=== PATIENT | male | born 2000 | race Caucasian/White ===

== ENCOUNTER 2024-09-30 15:15 | Emergency (ER) | payer OTHER, SELFPAY ==
--- NOTE | ~2024-09-30 | US_ITS ---
TESTICULAR ULTRASOUND (Doppler ultrasound interrogation techniques used as needed for this exam.) Ordering provider: Helene Landa MD History: . lump like feeling between between testicle . Comparison: None. FINDINGS: TESTICLES: Normal in size. The right measures 5x 2.5x 3.1 cm and the left measures 4.8x 2.7x 3.3 cm. Normal echogenicity bilaterally without mass lesion. Normal Doppler flow bilaterally. EPIDIDYMIDES: Normal in size. The right measures 1.3 cm and the left 1.3 cm. Normal echogenicity bila terally. Both demonstrate normal Doppler flow. Cystic areas seen in the right epididymis measuring 1. 3 x 0.3 x 0.3 cm. HYDROCELE: None. VARICOCELE: Mild right. OTHER ABNORMALITY: None seen. IMPRESSION: Right epididymal cyst. Mild right varicocele. Otherwise, normal testicular ultrasound. Reviewed, dictated and finalized at location A. IMPRESSION: Right epididymal cyst. Mild right varicocele. Otherwise, normal testicular ultr asound.
--- NOTE | 2024-09-30 15:35 | ED_ITS ---
HPI - General Adult General Chief complaint: Urogenital-Male Stated complaint: scrotal/penile discomfort, new partner recently Time Seen by Provider: 09/30/24 15:35 Source: patient Mode of arrival: ambulatory Limitations: no limitations Medical Decision Making Lab Data Labs: Lab Results 09/30/24 Range/Units 15:58 Urine Color Yellow (Yellow) Urine Appearance Clear (Clear) Urine pH 7.5 (5.0-9.0) Ur Specific [place] 1.022 (1.001-1.035) Urine Protein Negative (Negative) mg/dL Urine Glucose (UA) Negative (Negative) mg/dL Urine Ketones Negative (Negative) mg/dL Ur Blood (Man) Negative (Negative) Urine Nitrate Negative (Negative) Urine Bilirubin Negative (Negative) Urine Urobilinogen 1.0 (<2.0) mg/dL Leukocyte Esterase Rfl 1+ H (Negative) PILY/UL Urine RBC 0-2 (0-2) /hpf Urine WBC 21-50 H (0-3) /hpf Ur Squamous Epith Cells None seen (Few) /hpf Urine Bacteria None seen /hpf Urine Casts 0-2 Imaging Data Radiologist's impression: Impressions Scrotum Ultrasound 09/30/24 16:38 IMPRESSION: Right epididymal cyst. Mild right varicocele. Otherwise, normal testicular ultrasound. Critical Care Time Critical Care Time Critical Care Time: No Discharge Plan Discharge Clinical Impression: Epididymal cyst, Urinary tract infection, Varicocele Patient Disposition: Home Condition: Stable Instructions: Antibiotic Form, Urinary Tract Infection in Men (DC), Scrotal Pain (ED) Additional Instructions: Return if symptoms are worsening , call your family physician for appointment, take Tylenol as as needed for aches and pain, continue home medications. Patient Language: Nigerian Prescriptions: New levofloxacin 500 mg tablet 500 mg PO DAILY Qty: 5 0RF Follow-up/Referrals: Wild Bean MD [Physician] - 10/04/24 PHYSICIAN NOT ON STAFF,NONSTAFF [Primary Care Provider] -
[2024-09-30 15:40] VITALS: BP 127/71; PULSE 88; RESP 16; TEMP 36.6; O2SAT 99
[2024-09-30 16:10] LABS: Add Urine Microscopic? YES; Appearance Urine Clear (Clear); Bacteria Urine None Seen /hpf; Bilirubin Urine Negative (Negative); Blood Urine Negative (Negative); Color Urine Yellow (Yellow); Glucose Urine UA Negative (Negative); Ketones Urine Negative (Negative); Leukocyte Esterase Ur 1+ LEU/UL (Negative); Nitrate Urine Negative (Negative); Non Pathogenic Casts 0-2; Protein Urine Negative (Negative); RBC Urine 0-2 /hpf (0-2); Specific Grav Ur 1.022 (1.001-1.035); Squamous Epithelial Cell Urine None Seen /hpf (Few); WBC Urine 21-50 /hpf (0-3); pH Urine 7.5 (5.0-9.0)
--- OUTSIDE RECORDS SUMMARY | 2024-09-30 18:02 | XMS_ITS | Clinical Summary ---
Author Organization [facility] [address] [address] Care Team Providers Care Newsstand Vendor Name Role Phone Unknown, Notinfile Primary Care Provider Unavail able Allergies No known active allergies Medications No known medications Active Problems No known active problems Encounters Date Type Department Care Team Description 09/30/2024 2:45 PM CDT Office Visit [facility] at [address] [address] Linda Fields NP Scrotal pain (Primary Dx) from Last 3 Months Social History Tobacco Use Types Packs/Day Years Used Date Smoking Tobacco: Never Assessed Sex and Gender Information Value Date Recorded Sex Assigned at Not on file Legal Sex Male 9:32 AM CDT Gender Identity Not on file Sexual Orientation Not on file Obstetrics History Last Filed Vital Signs Vital Sign Reading Time Taken Comments Blood Pressure 126/80 09/30/2024 2:40 PM CDT Pulse 84 09/30/2024 2:40 PM CDT Temperature 36.8 C (98.2 F) 09/30/2024 2:40 PM CDT Respiratory Rate 20 09/30/2024 2:40 PM CDT Oxygen Saturation 100% 09/30/2024 2:40 PM CDT Inhaled Oxygen Concentration - - Weight 85.6 kg (188 lb 12.8 oz) 09/30/2024 2:40 PM CDT Height 182.9 cm (6') 03/13/2024 1:52 PM CDT Body Mass Index 25.61 03/13/2024 1:52 PM CDT Plan of Treatment Health Maintenance Due Date Last Done Comments Depression Screening 2002 Hepatitis C Screening 2002 DTaP/Tdap/Td Vaccine (1 - Tdap) 2013 Varicella Vaccines (1 of 2 - 13+ 2-dose series) 2015 HPV Vaccines (1 - Male 3-dos e series) 2017 Meningococcal B Vaccine (1 o f 2 - Standard) 2018 Hepatitis B Screening 02/28/2020 Regular Well Visit/Exam 18-64 02/28/2020 Influenza Vaccine (Season Ended) 2025 Pneumococcal vaccine <65 Aged Out No longer eligible based on patient's age to complete this topic Insurance * Guarantor: Michel Casas Account Type Relation to Patient Date of Phone Billing Address Personal/Family Self [address] [place] [address] [facility] [employer] Care Teams Newsstand Vendor Relationship Specialty Start Date End Date Unknown, Notinfile PCP - General 03/13/24
--- OUTSIDE RECORDS SUMMARY | 2024-09-30 18:02 | XMS_ITS | Referral Summary ---
Author Organization [facility] [address] [address] Care Team Providers Care Architect Intern Name Role Phone Unknown, Notinfile Primary Care Provider Unavail able Encounters Date Type Department Care Team Description 09/30/2024 2:45 PM CDT Office Visit [facility] at [address] [address] Linda Fields NP Scrotal pain (Primary Dx) from Last 3 Months Allergies No known active allergies Medications No known medications Active Problems No known active problems Social History Tobacco Use Types Packs/Day Years Used Date Smoking Tobacco: Never Assessed Sex and Gender Information Value Date Recorded Sex Assigned at Not on file Legal Sex Male 9:32 AM CDT Gender Identity Not on file Sexual Orientation Not on file Last Filed Vital Signs Vital Sign Reading [...] 03/13/2024 1:52 PM CDT Plan of Treatment Not on file Insurance * Guarantor: Michel Casas Account Type Relation to Patient Date of Phone Billing Address Personal/Family Self 2000 [address] [place] [address] [facility] [employer] Care Teams Architect Intern Relationship Specialty Start Date End Date Unknown, Notinfile PCP - General 03/13/24
--- OUTSIDE RECORDS SUMMARY | 2024-09-30 18:02 | XMS_ITS | Encounter Summary ---
Author Organization [facility] Healthcare Address [address] [place] [address] Care Team Providers Care Cigar Head Pegger Name Role Phone Unknown, Notinfile Primary Care Provider Unavail able Reason for Visit * Reason Comments Testicle Pain Not painful when uri nating. Not painful to touch. Not open. Not leaking. Encounter Details Date Type Department Care Team (Late st Contact Info) Description 09/30/2024 2:45 PM CDT Office Visit [facility] at [address] [address] Linda Fields, TRANSMISSION SPECIALIST [address] [place] [id number] Scrotal pain (Primary Dx) Social History Tobacco Use Types Packs/Day Years Used Date Smoking Tobacco: Never Assessed Sex and Gender Information Value Date Recorded Sex Assigned at Not on file Legal Sex Male 9:32 AM CDT Gender Identity Not on file Sexual Orientation Not on file documented as of this encounter Last Filed Vital Signs Vital Sign Reading Time Taken Comments Blood Pressure 126/80 09/30/2024 2:40 PM CDT Pulse 84 09/30/2024 2:40 PM CDT Temperature 36.8 C (98.2 F) 09/30/2024 2:40 PM CDT Respiratory Rate 20 09/30/2024 2:40 PM CDT Oxygen Saturation 100% 09/30/2024 2:40 PM CDT Inhaled Oxygen Concentration - - Weight 85.6 kg (188 lb 12.8 oz) 09/30/2024 2:40 PM CDT Height - - Body Mass Index 25.61 03/13/2024 1:52 PM CDT documented in this encounter Patient Instructions * Patient Instructions* Linda Fields NP - 09/30/2024 2:45 PM CDT Scrotal pain x 3-4 days. Reports new sexual partner. Rule out testicular torsion. Also possible penile discharge per patient. documented in this encounter Plan of Treatment Not on file documented as of this encounter Visit Diagnoses Diagnosis Scrotal pain- Primary Unspecified disorder of male genital organs documented in this encounter Care Teams Cigar Head Pegger Relationship Specialty Start Date End Date Unknown, Notinfile PCP - General 03/13/24 documented as of this encounter
== END 2024-09-30 18:10 | disposition home or self-care (01) ==
LOC: ANHED 17:54
PROVIDERS: Emergency Provider Emergency Medicine
DX: N50.3 Cyst of epididymis (principal); I86.1 Scrotal varices; N39.0 Urinary tract infection, site not specified
CPT/HCPCS: 76870; 81001; 87086; 93976; 99284